=== PATIENT | female | born 2000 | race Caucasian/White ===

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

== ENCOUNTER 2024-04-18 09:03 | Emergency (ER) | payer SELFPAY | END 2024-04-18 09:30 | disposition home or self-care (01) | LOC: ERS 09:03 | DX: K11.20 Sialoadenitis, unspecified (principal) | CPT/HCPCS: 99282 ==